=== PATIENT | male | born 1970 | race Caucasian/White ===

== ENCOUNTER 2021-06-11 16:22 | Emergency (ER) | payer OTHER, SELFPAY ==
[2021-06-11 16:37] VITALS: BP 172/81; PULSE 92; RESP 14; TEMP 36.8; O2SAT 97; BMI 27.9
--- NOTE | 2021-06-11 20:49 | ED.FALL ---
HPI - Fall General Chief Complaint: Fall Stated Complaint: FALL GOT LUMP REAR THAT BURST WONT STOP BLEEDING Time Seen by Provider: 06/11/21 20:22 Source: patient Mode of arrival: Ambulatory History of Present Illness HPI Narrative: Patient is a 50-year-old male. A couple days ago he slipped while walking out of his trailer. He did hit his buttocks on the trailer on the way down. Sustained no injury from the vent. Shortly afterwards developed a external hemorrhoid that was uncomfortable. He now is having bleeding from that hemorrhoid. He states the pain has improved. Is having some difficulty controlling the bleeding. Has not tried anything for the symptoms prior to arrival. Review of Systems Constitutional Constitutional: Denies fever(s) Gastrointestinal Gastrointestinal: Denies abdominal pain, Denies melena, Reports hematochezia, Denies nausea and Denies vomiting Genitourinary Genitourinary: Denies dysuria Integumentary/Breasts Skin/Breast: Reports system reviewed and no additional complaints, except as documented Neurologic Neurologic: Reports system reviewed and no additional complaints, except as documented Hematologic/Lymphatic On Anticoagulants: No Patient History Medical History Healthy adult Social History Smoking Status: Never smoker Smoking Status: Never smoker alcohol intake frequency: holidays/special occasions only Substance Use Type: does not use Exam Initial Vital Signs Initial Vital Signs: Vital Signs Temperature 98.2 F 06/11/21 16:37 Pulse Rate 92 H 06/11/21 16:37 Respiratory Rate 14 06/11/21 16:37 Blood Pressure 172/81 H 06/11/21 16:37 Pulse Oximetry 97 06/11/21 16:37 Resp Effort & Inspection: normal respiratory effort Cardio Rate: regular rate GI Other: Patient with an external hemorrhoid that is bleeding. No other injuries noted in the rectal region Skin General: no rashes or lesions noted Neuro General: patient alert, patient awake, patient oriented x3 and moves all extremities Extrem General: normal to inspection and capillary refill normal Course Vital Signs Vital signs: Vital Signs - 8 hr 06/11/21 16:37 Temperature 98.2 F Pulse Rate 92 H Respiratory Rate 14 Blood Pressure 172/81 H Pulse Oximetry 97 MDM - Fall MDM Narrative Medical decision making narrative: Patient has an obvious external hemorrhoid that is bleeding. His vital signs are unremarkable. There are no other injuries noted in his rectal area. No indication for surgical consultation. We did discuss the use preparation H and tucks pads and Sitz baths. I did discuss the potential that this could continue to bleed over the next couple days. He was given strict return precautions and follow-up instructions. He expressed understanding and agreement Discharge Plan Departure Patient Disposition: Home Clinical Impression: Bleeding external hemorrhoids Instructions: DI for Hemorrhoids Activity Restrictions/Additional Instructions: You can use topical solutions such as preparation H or tucks pads or witch Edna pads. You can purchase these [id number]. He can also use Sitz baths. Contact your primary doctor for a follow-up. Return to the emergency department for any new or worsening symptoms.
== END 2021-06-11 21:09 | disposition home or self-care (01) ==
PROVIDERS: Emergency Provider Emergency Medicine
DX: K64.4 Residual hemorrhoidal skin tags (principal)
CPT/HCPCS: 99281

== ENCOUNTER 2021-08-24 15:15 | Emergency (ER) | payer OTHER, SELFPAY ==
[2021-08-24 15:16] VITALS: BP 162/87; PULSE 88; RESP 18; TEMP 37.7; O2SAT 100
--- NOTE | 2021-08-24 15:56 | DI.RAD.S_ITS ---
PROCEDURE: XR HAND LT MIN 3V INDICATIONS: large knife,cut 3rd/4th digits TECHNIQUE: Three views of the hand(s) acquired. COMPARISON: None. FINDINGS: Bones: No fractures or dislocations. Carpal bones are normally aligned. No suspicious bony lesions. Soft tissues: No suspicious soft tissue calcifications. There is a punctate density in the distal lateral soft tissues of the 4th digit of uncertain etiology. There is a metallic jens like density projecting over the 2nd MCP joint. IMPRESSION: 1. No visible displaced fracture. 2. Punctate foreign body in the 4th distal phalanx. 3. Incidental note of possible foreign body at the 2nd MCP joint. Dictated by: Ruby Sahni M.D. on 08/24/2021 at 17:05 Approved by: Ruby Sahni M.D. on 08/24/2021 at 17:08
[2021-08-24] MEDS: TET,DIPH,PERTUSS(ACELL),VAC/PF 0.5 ML SYRINGE IM (17:03)
--- NOTE | 2021-08-24 17:15 | ED.UPPEXIN ---
HPI - Extremity Injury (Upper) <Sumit Smith PA-C - Last Filed: 08/24/21 18:35> General Chief Complaint: Extremity Injury, Upper Stated Complaint: LEFT HAND SLICED FINGERS Time Seen by Provider: 08/24/21 16:45 Source: patient Mode of arrival: Ambulatory History of Present Illness HPI narrative: This is a 51-year-old male presents the emergency department due to a left hand laceration. Patient states that he was cutting a piece of wire and it slipped causing him to cut his left 4th and 3rd fingers. Tetanus is not up-to-date. Maintains full range of motion of the finger. Denies any spreading of bright red blood. States that it is ?starting to close up already. Not on blood thinners. Related Data Previous Rx's Medication Instructions Recorded cephalexin 500 mg capsule 500 mg PO QID 10 Days #40 cap 08/24/21 Allergies Allergy/AdvReac Type Severity Reaction Status Date / Time No Known Drug Allergies Allergy Verified 08/24/21 15:26 Review of Systems <Sumit Smith PA-C - Last Filed: 08/24/21 18:35> Review of Systems Narrative: See HPI Patient History <Sumit Smith PA-C - Last Filed: 08/24/21 18:35> Medical History Healthy adult Social History Smoking Status: Never smoker Smoking Status: Never smoker alcohol intake frequency: holidays/special occasions only Substance Use Type: does not use Exam <NANCI Ceron Last Filed: 08/24/21 18:35> Initial Vital Signs Initial Vital Signs: Vital Signs Temperature 99.9 F H 08/24/21 15:16 Pulse Rate 88 08/24/21 15:16 Respiratory Rate 18 08/24/21 15:16 Blood Pressure 162/87 H 08/24/21 15:16 Pulse Oximetry 100 08/24/21 15:16 Const General: cooperative and healthy appearing Skin Other: 3.5 cm laceration to the distal tip of the left 4th finger. No active bleeding. Superficial 2 cm laceration to the left 3rd distal tip. Extrem Other: Full range of motion at the PIP of the 4th and 5th fingers. Full range of motion of the entirety of the joints of the left hand. <Scott Chamorro DO - Last Filed: 08/25/21 08:08> Initial Vital Signs Initial Vital Signs: Vital Signs Temperature 99.9 F H 08/24/21 15:16 Pulse Rate 88 08/24/21 15:16 Respiratory Rate 18 08/24/21 15:16 Blood Pressure 162/87 H 08/24/21 15:16 Pulse Oximetry 100 08/24/21 15:16 Procedures <Sumit Smith PA-C - Last Filed: 08/24/21 18:35> Laceration Repair Laceration 1: Time of procedure: 18:11 Site: upper extremity (L 3rd finger) Size (cm): 3.5 Description: linear Depth: simple, single layer Local Anesthetic: lidocaine 1% Amount of anesthesia used (mL): 3 Skin layer closed with: other (ethilon) Number of sutures: 6 Technique: simple, interrupted Course <Sumit Smith PA-C - Last Filed: 08/24/21 18:35> Orders Ordered: Discontinued Medications Diphtheria/Tetanus/Acell Pertussis (Tet,Diph,Pertuss(Acell),Vac/Pf 0.5 Ml Syringe) 0.5 ml IM .ONCE ONE Stop: 08/24/21 16:13 Last Admin: 08/24/21 17:03 Dose: 0.5 ml Documented by: BTONER Lidocaine HCl (Lidocaine 1% 20 Ml) 20 ml INJ INTRA-OP ONE Stop: 08/24/21 17:05 Last Admin: 08/24/21 17:22 Dose: 20 ml Documented by: MARCUS Vital Signs Vital signs: Vital Signs - 8 hr 08/24/21 15:16 Temperature 99.9 F H Pulse Rate 88 Respiratory Rate 18 Blood Pressure 162/87 H Pulse Oximetry 100 <Scott Chamorro DO - Last Filed: 08/25/21 08:08> Orders Ordered: Discontinued Medications Diphtheria/Tetanus/Acell Pertussis (Tet,Diph,Pertuss(Acell),Vac/Pf 0.5 Ml Syringe) 0.5 ml IM .ONCE ONE Stop: 08/24/21 16:13 Last Admin: 08/24/21 17:03 Dose: 0.5 ml Documented by: BTONER Lidocaine HCl (Lidocaine 1% 20 Ml) 20 ml INJ INTRA-OP ONE Stop: 08/24/21 17:05 Last Admin: 08/24/21 17:22 Dose: 20 ml Documented by: MARCUS Vital Signs Vital signs: Vital Signs - 8 hr 08/24/21 15:16 Temperature 99.9 F H Pulse Rate 88 Respiratory Rate 18 Blood Pressure 162/87 H Pulse Oximetry 100 MDM - Extremity Injury (Upper) <Sumit Smith PA-C - Last Filed: 08/24/21 18:35> MDM Narrative Medical decision making narrative: This is 51-year-old male presenting to the emergency department due to a left 3rd finger laceration. No evidence of any kind of tendon damage as the patient has full flexion extension at the DIP. Tetanus is not up-to-date but was updated. Antibiotics prescribed for infection prophylaxis as the patient reports working with a dirty knife. Laceration close the repair. Patient also had a very mild laceration to the left 2nd finger which is closed using Dermabond. Discharge Plan Departure Patient Disposition: Home Clinical Impression: Laceration Instructions: DI for Suture Removal Activity Restrictions/Additional Instructions: Thank you for coming to the [facility] Emergency Department. I am glad that we were able to close up the laceration. Please take the antibiotics to avoid any infections. Please follow-up with your primary care provider for suture removal in roughly 7-10 days. Prescriptions: New cephalexin 500 mg capsule 500 mg PO QID 10 Days Qty: 40 0RF <Scott Chamorro DO - Last Filed: 08/25/21 08:08> Jhonatan ED Attending Jhonatanature Attestation: I was immediately available in the department for consultation. This documentation has been reviewed and I agree with assessment and plan. Supervised by Scott Chamorro DO
[2021-08-24] MEDS: LIDOCAINE 1% 20 ML INJ (17:22)
== END 2021-08-24 18:34 | disposition home or self-care (01) ==
PROVIDERS: Emergency Provider Physician Assistant Medical
DX: S61.213A Laceration without foreign body of left middle finger without damage to nail, initial encounter (principal); S61.215A Laceration without foreign body of left ring finger without damage to nail, initial encounter; W45.8XXA Other foreign body or object entering through skin, initial encounter; Y93.89 Activity, other specified; Z23 Encounter for immunization
CPT/HCPCS: 12002; 73130; 90471; 99283; 99284; 90715

== ENCOUNTER 2022-07-23 06:50 | Emergency (ER) | payer OTHER, SELFPAY ==
[2022-07-23 06:56] VITALS: BP 161/105; PULSE 81; RESP 18; TEMP 35.9; O2SAT 93; BMI 30.8
--- NOTE | 2022-07-23 07:00 | ED.BACK ---
HPI - Back Pain/Injury General Chief Complaint: Back Pain/Injury Stated Complaint: back pain and lump on side right Time Seen by Provider: 07/23/22 06:56 Source: patient History of Present Illness HPI Narrative: 52-year-old male nonsmoker with noncontributory chronic medical history presents with a chief complaint of a left-sided mid back pain suffered when moving heavy objects a few days ago. He states that he was lifting heavy chunks of concrete and rotating his torso when he felt a pulling sensation in his left side mid back. He is had ongoing pain and spasming. His symptoms are worse when he moves and improves with rest. He states that the pain wraps around his left side a bit and he is developed some swelling in his left lower abdomen that seems to go away over the course of the day. He does have some occasional pain that radiates down his left leg and associated tingling but denies any weakness. He is had no fever or chills and takes no blood thinners. He denies any loss of control of bowel or bladder. He denies lower extremity weakness or any footdrop. He did not have any direct trauma and denies any history of the same. Related Data Previous Rx's Medication Instructions Recorded cyclobenzaprine 10 mg tablet 10 mg PO TID PRN muscle spasm #14 07/23/22 tabs gabapentin 300 mg capsule 300 mg PO BEDTIME #14 caps 07/23/22 hydrocodone 5 mg-acetaminophen 325 1 tab PO Q4-6H PRN pain #10 tabs 07/23/22 mg tablet ketorolac 10 mg tablet 10 mg PO Q6H PRN pain #14 tabs 07/23/22 methylprednisolone 4 mg tablets in See Rx Instructions PO .COMPLEX 07/23/22 a dose pack (Medrol (Augustus)) #21 ea Allergies Allergy/AdvReac Type Severity Reaction Status Date / Time No Known Drug Allergies Allergy Verified 08/24/21 15:26 Review of Systems Review of Systems Narrative: GENERAL: Denies chills, fatigue, malaise, fever, sweats. HEENT: Denies sinus pain, ear pain, sore throat, difficulty swallowing, dizziness. RESPIRATORY: Denies dyspnea, cough, wheezing, hemoptysis, sputum. CARDIOVASCULAR: Denies chest pain, palpitations, orthopnea, edema, GASTROINTESTINAL: Denies nausea, vomiting, abdominal pain, diarrhea, constipation, melena. : Denies dysuria, frequency, incontinence, hematuria, urinary retention. MUSCULOSKELETAL: See HPI SKIN: Denies rash, skin lesions, or other NEUROLOGIC: See HPI PSYCHIATRIC: No concerning psychosocial issues. 12 point review of systems is negative except for those stated above Patient History Medical History Healthy adult Social History Smoking Status: Never smoker Smoking Status: Never smoker alcohol intake frequency: holidays/special occasions only Substance Use Type: does not use Exam Narrative Exam Narrative: GENERAL: [52] year old patient appears stated age. Well-developed patient, in mild distress. HEAD: Atraumatic. Normocephalic. EYES: Pupils equal round and reactive. Extraocular motions intact. No scleral icterus. No injection or drainage. ENT: Nose without bleeding, purulent drainage. Throat without erythema, tonsillar hypertrophy or exudate. Airway patent. NECK: Trachea midline. Non tender CARDIOVASCULAR: Regular rate and rhythm without murmurs, gallops, or rubs. RESPIRATORY: Clear to auscultation. Breath sounds equal bilaterally. No wheezes, rales, or rhonchi. GASTROINTESTINAL: Abdomen soft, non-tender, nondistended. Left lower quadrant with loose, superficial edema, no underlying tenderness, warmth, induration. EXTREMITIES: No edema or joint tenderness. BACK: lens fabricating machine tender but free of any obvious external abnormalities. Patient exam notes decreased range of motion and muscle spasm, but no CVA tenderness, or vertebral point tenderness. There are no symptoms of cauda equina such as saddle anesthesia, and decreased reflexes, decreased sensation or strength. NEURO: AOx3. SKIN: No rash or erythema of visible areas Initial Vital Signs Initial Vital Signs: Vital Signs Temperature 96.7 F L 07/23/22 06:56 Pulse Rate 81 07/23/22 06:56 Respiratory Rate 18 07/23/22 06:56 Blood Pressure 161/105 H 07/23/22 06:56 Pulse Oximetry 93 07/23/22 06:56 Oxygen Delivery Method 07/23/22 06:56 Course Orders Ordered: ED Orders 07/23/22 07:13 XR thoracic spine 3V Stat Discontinued Medications Gabapentin (Gabapentin 300 Mg Capsule) 300 mg PO NOW ONE Stop: 07/23/22 07:14 Last Admin: 07/23/22 07:24 Dose: 300 mg Documented By: AMISHA Ketorolac Tromethamine (Ketorolac 30 Mg/Ml Vial) 30 mg IM NOW ONE Stop: 07/23/22 07:14 Last Admin: 07/23/22 07:24 Dose: 30 mg Documented By: AMISHA Vital Signs Vital signs: Vital Signs - 8 hr 07/23/22 06:56 Temperature 96.7 F L Pulse Rate 81 Respiratory Rate 18 Blood Pressure 161/105 H Pulse Oximetry 93 Oxygen Delivery Method Room Air MDM - Back Pain/Injury Imaging Data T Spine Xray: Radiologist's Impression: [address] [id number] ReportSigned Patient: Yue Verdugo KMR#: [id number]: 6Acct:[id number]/Sex: 77 / FDate of Service: 07/22/22Loc: EDAccession Number: [id number] Procedure: XR wrist RT min 3V Ordering Provider: Scott Chamorro D.O. PROCEDURE: XR WRIST RT MIN 3V INDICATIONS: Fall with bruising and swelling to right wrist TECHNIQUE: 4 views of the wrist were acquired. COMPARISON: None. FINDINGS: Bones: Impacted distal radial fracture is seen. Ulnar styloid tip fracture is also noted. Osteoarthritic changes are noted throughout wrist joints most notably at 1st CMC joint. No suspicious bony lesions. Scaphoid view: No definite scaphoid fracture. No evidence of avascular necrosis. Soft tissues: No suspicious soft tissue calcifications. Diffuse soft tissue swelling around wrist joint is noted. IMPRESSION: Acute impacted distal radial fracture and ulnar styloid tip fracture. Osteoarthritis throughout right wrist joints. Diffuse wrist soft tissue swelling. Dictated by: Chente Lowry M.D. on 07/22/2022 at 15:43 Approved by: Chente Lowry M.D. on 07/22/2022 at 15:51 [facility] Narrative Medical decision making narrative: CC: 52-year-old previously healthy male with left mid back pain after lifting heavy objects with some radicular symptoms. No fever or chills, no use of blood thinners, no signs of cauda equina Complicating co-morbidities: None known Data collected from: Patient Medical records reviewed: Prior emergency department visits in our EMR Differential considered, but not limited to: Paraspinal muscle spasm, myofascial strain, partial muscle tear, radiculopathy, compression fracture versus other Exam documented above, pertinent findings include: No midline tenderness, spasm palpated in left-sided paraspinal thoracic musculature, no fluctuance, warmth or induration. Abdomen soft and nontender. No signs of cauda equina such as saddle anesthesia, lower extremity weakness, depressed reflexes Imaging studies independently reviewed: No acute process Treatments: Toradol gabapentin Re-evaluations: Improved symptoms still sore Discussion: Back pain after injury, no bony pain, no direct trauma, mild radicular signs but no evidence of neurosurgical emergency such as cauda equina, epidural abscess, hematoma. Disposition: see below, along with detailed discharge instructions that have been reviewed with patient as well as indications for ED re-evaluation and additional outpatient follow up Discharge Plan Departure Patient Disposition: Home Clinical Impression: Acute thoracic myofascial strain Instructions: DI for Back Spasm Activity Restrictions/Additional Instructions: *You have been diagnosed with [ Left thoracic strain with possible radicular symptoms] *What to do: *Please continue to take your regular medications as directed. [x ] New medication prescriptions sent to your pharmacy: [ [facility]] [ ] New medication written as a paper prescription [ ] No new medications given *Please follow up with your primary care provider in 2-3 days, call for an appointment. Let them know you were seen in the Emergency Department and that we ask that you be seen in follow up. We will electronically transmit a record of today's note if your PCP is in our system *If you do not have a primary care provider please contact the [facility] Resource line at [phone]. They will ask some questions about your medical history and help get you set up with a doctor in the community. *Also, as we discussed I have given you contact info for both Dr. Smith and Dr. Silverman who are the [facility] back experts for completeness sake. *Return to Emergency Department if you should have any new, worsening or concerning symptoms, such as [fever greater than 101 F, shaking chills, worsening pain, persistent vomiting, loss of bowel/bladder control, leg weakness or other bothersome symptoms] Prescriptions: New cyclobenzaprine 10 mg tablet 10 mg PO TID PRN (Reason: muscle spasm) Qty: 14 0RF hydrocodone-acetaminophen 5-325 mg tablet 1 tab PO Q4-6H PRN (Reason: pain) Qty: 10 0RF ketorolac 10 mg tablet 10 mg PO Q6H PRN (Reason: pain) Qty: 14 0RF gabapentin 300 mg capsule 300 mg PO BEDTIME Qty: 14 0RF methylprednisolone [Medrol (Augustus)] 4 mg tablets,dose pack See Rx Instructions .ROUTE .COMPLEX Qty: 21 0RF Rx Instructions: orally per package directions Referrals: Sebastian Silverman DO [Physician] - Stone Smith MD [Physician] - Stand Alone Forms: Patient Portal/API
--- NOTE | 2022-07-23 07:13 | DI.RAD.S_ITS ---
PROCEDURE: XR THORACIC SPINE 3V INDICATIONS: mid back pain, worse on left, radicular symptoms TECHNIQUE: 3 views of the thoracic spine were acquired. COMPARISON: None. FINDINGS: Bones: No fractures or dislocations. No suspicious bony lesions. 12 pairs of ribs are noted, and appear intact where visualized. Soft tissues: No paravertebral stripe thickening. IMPRESSION: No visualized acute fracture or dislocation. However, if clinical concern and/or pain persist, short interval imaging followup in 7-10 days is recommended, as occult injury cannot be definitively excluded. Dictated by: Jessica Lantigua M.D. on 07/23/2022 at 8:15 Approved by: Jessica Lantigua M.D. on 07/23/2022 at 8:15
[2022-07-23] MEDS: KETOROLAC 30 MG/ML VIAL IM (07:24)
[2022-07-23] MEDS: GABAPENTIN 300 MG CAPSULE PO (07:24)
== END 2022-07-23 08:21 | disposition home or self-care (01) ==
PROVIDERS: Emergency Provider Emergency Medicine
DX: S29.012A Strain of muscle and tendon of back wall of thorax, initial encounter (principal); X50.0XXA Overexertion from strenuous movement or load, initial encounter
CPT/HCPCS: 72072; 96372; 99283; 99284; J1885